=== PATIENT | male | born 1975 | race Caucasian/White ===

== ENCOUNTER 2016-04-17 20:45 | Emergency (ER) | payer OTHER ==
[2016-04-17] MEDS ORDERED: IOPAMIDOL 370 (76%) 100 ML VIAL IV ONE (20:46)
[2016-04-18] MEDS ORDERED: KETOROLAC TROMETHAMINE 15 MG/ML VIAL ONE (00:01)
[2016-04-18] MEDS ORDERED: HYDROCODONE/ACETAMINOPHEN 5/325MG TABLET ONE (00:01)
--- NOTE | 2016-04-18 08:11 | CT ---
UPPER EXT W/ CON RT History: Right hand pain within the thenar eminence Comparison: Plain film examination of the same day. Procedure: 1 mm axial images were obtained through the hand following the administration of 100cc's of Isovue-370 intravenous contrast. Stacked reconstructed 3 mm images were then photographed in the axial, coronal and sagittal planes. Findings: Evaluation of the osseous structures demonstrates a normal appearance with no traumatic fracture observed. The alignment is appropriate. The joint spaces appear to be well maintained. The carpal structures appear to be intact with the suggestion of a small island within the proximal pole of the scaphoid. There may be subtle soft tissue prominence of the tissues between the first and second rays, though no discrete mass or focal fluid collection is visualized. The peripheral vessel enhancement is unremarkable. There is a grossly normal appearance of the visualized tendinous structures. Impression: 1. No discrete osseous abnormality visualized. 2. Possible subtle asymmetric prominence of the soft tissues between the first and second rays with no discrete mass or focal fluid collection visualized. The findings were called to the emergency room at 2322 hours, 04/17/2016, by [facility].
--- NOTE | 2016-04-18 08:12 | RAD ---
HAND-RIGHT 3 VIEWS HISTORY: Soft tissue swelling between the first and second rays. COMPARISONS: 02/09/2016. FINDINGS: 3 views of the right hand demonstrate normal bony mineralization. The osseous structures appear to be appropriate. The joint spaces are well-maintained. No focal soft tissue abnormalities are visualized. IMPRESSION: 1. Negative views of the right hand.
== END 2016-04-18 00:19 | disposition home or self-care (01) ==
LOC: ED 20:45
DX: M79.641 Pain in right hand (principal)
CPT/HCPCS: 73130; 73201; 99284 ×2; 96374; J1885; Q9967; A9270